=== PATIENT | male | born 1945 | race Caucasian/White ===

== ENCOUNTER 2016-08-21 21:14 | Emergency (ER) | payer OTHER ==
[~2016-08-21] VITALS: Ht 180.3 cm; Wt 106.0 kg
[~2016-08-21 21:14] MED LIST: ASPI81TA28 PO; ATOR10TA82 PO; GABA-112 PO; METO25TA3 PO; NTRGSL/4 UT; RXC5 PO; TRAM-10 PO
[2016-08-21 21:21] VITALS: TEMP 36.6; Ht 180.3 cm; Wt 106.0 kg
[2016-08-21] MEDS ORDERED: OXYCODONE HCL IR 5 MG TAB (IMMEDIATE RELEASE) PO STA (21:32)
--- NOTE | 2016-08-21 21:51 | DIAGNOSTIC IMAGING REPORT ---
RIGHT KNEE 3 VIEWS HISTORY: R knee pain Right COMPARISON: None. FINDINGS: There is no fracture or dislocation. Trace knee effusion. Anterior soft tissue swelling. Mild cartilage space narrowing within the medial compartment of the knee. No radiopaque foreign bodies. IMPRESSION: No fractures. Anterior soft tissue swelling and a trace knee effusion. Electronically signed by: Jayme Edwards M.D. 08/21/2016 9:50 PM Dictated Date/Time: 08/21/2016 9:49 PM
[2016-08-21] MEDS ORDERED: OXYCODONE IR HOME PACK PO ONE (22:15)
[2016-08-21] MEDS ORDERED: TAMS0.4C38 PO (22:16)
[2016-08-21] MEDS ORDERED: PRED20TA PO (22:16)
[2016-08-21] MEDS ORDERED: OXYC1TAB3 PO (22:17)
[2016-08-21] MEDS ORDERED: OXYB10TA PO (22:26)
[2016-08-21] MEDS ORDERED: ACET1TAB84 PO (22:26)
[2016-08-21 22:31] VITALS: BP 156/81; PULSE 80; O2SAT 97
--- NOTE | 2016-08-21 23:39 | EMERGENCY ROOM VISIT NOTE ---
History First contact with patient: 21:25 Chief Complaint: KNEEPAIN Stated Complaint: RT KNEE PAIN History of Present Illness The patient is a 70 year old male who presents to the Emergency Room with complaints of a right knee injury tonight while walking his Labrador retriever. The patient reports that he twisted his knee. He reports that the knee now feels unstable. He is currently under the care of his PCP for right knee pain, and actually had an x-ray performed a few days ago. He was provided a prescription for a steroid, and is supposed to follow-up with him again next week. The patient rates his discomfort a 10 out of 10. Denies any paresthesias or numbness of the right lower extremity. Review of Systems 10 system review was performed and was negative except for pertinent positives and negatives as indicated in history of present illness Past Medical/Surgical History Medical Problems: (1) Coronary atherosclerosis of [place] coronary vessel (2) History Of Tobacco Use (3) Lumbago (4) Percutaneous Translum Coron Angioplasty Status (5) Spinal Stenosis, Lumbar Reg, W/Out Neurogenic Claudication Family History FH: breast cancer Social History Smoking Status: Never Smoker Alcohol Use: occasionally Marital Status: Occupation Status: retired Current/Historical Medications Scheduled Aspirin (Aspirin Ec), 81 MG PO QAM Atorvastatin (Lipitor), 10 MG PO QAM Gabapentin (Neurontin), 200 MG PO TID Metoprolol Succ (Toprol Xl) (Toprol-Xl), 12.5 MG PO QAM Nitroglycerin (Nitrostat), 0.4 MG UT PRN Oxybutynin Chloride Er (Ditropan Xl), 10 MG PO DAILY Prednisone (Prednisone), 2 TAB PO DAILY Tamsulosin Hcl (Flomax), 0.4 MG PO DAILY Scheduled PRN Acetaminophen (Tylenol Arthritis Ext Rel), 1-2 TABS PO Q6-8 PRN for Pain Oxycodone Ir (Roxicodone Ir), 1-2 TAB PO Q4H PRN for Pain Allergies Coded Allergies: Simvastatin (Verified Adverse Reaction, Intermediate, MUSCLE ACHES, 02/07) Physical Exam Vital Signs Date Time Temp Pulse Resp B/P Pulse Ox O2 Delivery O2 Flow Rate FiO2 08/21/16 22:31 80 156/81 97 08/21/16 21:21 36.6 75 18 172/82 96 Room Air Physical Exam CONSTITUTIONAL: Healthy and well nourished. Alert and oriented X 3 with positive affect. Patient appears in moderate discomfort from pain. HEENT: Normocephalic, atraumatic. Pupils equal, round and reactive. NECK: Full active range of motion without discomfort. MUSCULOSKELETAL: Examination of the right knee shows a 2+ joint effusion. There is no ecchymosis, erythema or abrasions. He is generally tender throughout the medial and lateral joint line. He does have subcutaneous eczema over the patella and infrapatellar region. Collateral ligaments are intact. No obvious anterior draw or posterior draw. No popliteal masses. Pedal pulses are intact. No focal tenderness to palpation of the hamstrings. INTEGUMENTARY: No rash or other significant dermatologic conditions noted. NEUROLOGIC: No focal neurologic deficits noted. Right lower extremity is sensory intact. Medical Decision & Procedures ER Provider Diagnostic Interpretation: My interpretation of right knee x-rays does not show any obvious fractures or dislocations. Radiologist report is as follows: RIGHT KNEE 3 VIEWS HISTORY: R knee pain Right COMPARISON: None. FINDINGS: There is no fracture or dislocation. Trace knee effusion. Anterior soft tissue swelling. Mild cartilage space narrowing within the medial compartment of the knee. No radiopaque foreign bodies. IMPRESSION: No fractures. Anterior soft tissue swelling and a trace knee effusion. Medications Administered Medications (Trade) Dose Ordered Sig/Katharine Route Start Time Stop Time Status Last Admin Dose Admin Oxycodone HCl (Roxicodone Immediate Rel Tab) 5 mg NOW STAT PO 08/21/16 21:32 08/21/16 21:34 DC 08/21/16 21:37 5 MG Oxycodone HCl (Roxicodone Immediate Rel 5MG Home Pack) 1 homepack UD ONCE PO 08/21/16 22:15 08/21/16 22:16 DC 08/21/16 22:25 1 HOMEPACK ED Course Patient history and physical exam were performed. Nurse's notes were reviewed. The patient was administered OxyIR 5 mg for pain. X-rays of the right knee were normal. A knee immobilizer was applied. The patient reports that he has crutches in his vehicle. He was provided contact information for [facility] for further follow-up and management. He was provided a home pack and prescription for OxyIR 5 mg. He was warned about sedation and constipation while taking this medication. The patient was happy with plan of care, voiced understanding of all discharge instructions, and rated his pain a 5 out of 10 at the conclusion of my exam. The patient was also seen and examined by Dr. Galeano , ED attending physician, who agrees with workup and plan of care. Impression Primary Impression: Right knee injury Departure Information Prescriptions Oxycodone Ir (Roxicodone Ir) 5 Mg Tab 1-2 TAB PO Q4H Y for Pain, #15 TAB For Initial Treatment Prov: Don Waldron PA 08/21/16 Referrals No Doctor, Assigned (PCP) Patient Instructions My [facility] Problem Qualifiers Primary Impression: Right knee injury Encounter type: initial encounter Qualified Codes: S89.91XA - Unspecified injury of right lower leg, initial encounter
== END 2016-08-21 22:32 | disposition home or self-care (01) ==
LOC: C.EDB 21:15 → C.EDD 22:32
DX: S89.91XA Unspecified injury of right lower leg, initial encounter (principal); X50.1XXA Overexertion from prolonged static or awkward postures, initial encounter; Y93.K1 Activity, walking an animal; I25.10 Atherosclerotic heart disease of native coronary artery without angina pectoris; Z87.891 Personal history of nicotine dependence; M48.06 Spinal stenosis, lumbar region; Z80.9 Family history of malignant neoplasm, unspecified; Z79.82 Long term (current) use of aspirin; Z79.52 Long term (current) use of systemic steroids; Z79.899 Other long term (current) drug therapy